=== PATIENT | female | born 1960 | race Caucasian/White ===

== ENCOUNTER 2023-08-29 10:21 | Emergency (ER) | payer OTHER, SELFPAY ==
--- NOTE | ~2023-08-29 | US_ITS ---
EXAMINATION: US venous doppler UE RT DATE: 08/29/2023 13:30 INDICATION: Right upper limb discoloration. TECHNIQUE: Grayscale ultrasound images without and with compression and Doppler ultrasound images of the right upper extremity veins were obtained. COMPARISON: None. FINDINGS: The visualized portions of the right internal jugular vein, subclavian vein, axillary vein, brachial veins, basilic vein, cephalic vein, radial vein, and ulnar vein are patent. IMPRESSION: 1. No deep venous thrombosis. Reviewed, dictated and finalized at location A.
[2023-08-29 10:22] VITALS: BP 137/71; PULSE 97; RESP 19; TEMP 36.9; O2SAT 96
[2023-08-29 11:51] VITALS: BP 121/64; PULSE 92; RESP 16; O2SAT 95
--- NOTE | 2023-08-29 12:16 | ED.GENADULT ---
HPI - General Adult General Chief complaint: Extremity Injury, Upper Stated complaint: arm swelling and bruising Time Seen by Provider: 08/29/23 11:00 History of Present Illness HPI narrative: 63-year-old female present to the emergency department for evaluation of bruising of the right arm. Patient had a fall last week and had extensive bruising of the arm. Patient did have x-rays of the arm. Due to the extensive bruising and persistent swelling patient was sent to the emergency department for evaluation. Patient states she felt like the swelling was improving. Patient denies any numbness or weakness of that arm. Patient is not on any blood thinners. Patient denies any other pain or injury. During the fall patient states she did not strike her head had no loss of consciousness. Related Data Allergies Allergy/AdvReac Type Severity Reaction Status Date / Time No Known Allergies Allergy Unknown Verified 09/08/05 19:18 Review of Systems Review of Systems: All systems reviewed & are unremarkable except as noted in HPI and below Exam Narrative: APPEARANCE: Well appearing, no pain, no distress, well-nourished. HEAD: normocephalic, atraumatic. EYES: PERRLA/EOMI, conjunctivae clear. NECK: Supple. No adenopathy, no masses. RESPIRATORY: Airway patent, respirations nonlabored. Clear to auscultation bilaterally, no rales, rhonchi, wheezing. CARDIOVASCULAR: Regular rate and rhythm without murmurs rubs or gallops. ABDOMINAL: Soft, nontender, nondistended, normal bowel sounds MUSCULOSKELETAL: Ecchymosis of right upper extremity neurologically intact with strong pulses, localized bursitis of the elbow NEURO: Alert. Cranial nerves II through XII intact. Grossly intact SKIN: Warm, dry. Normal Color Course Vital Signs Vital signs: Vital Signs Temperature 98.4 F 08/29/23 10:22 Pulse Rate 97 08/29/23 10:22 Respiratory Rate 19 08/29/23 10:22 Blood Pressure 137/71 08/29/23 10:22 Pulse Oximetry 96 08/29/23 10:22 Oxygen Delivery Room Air 08/29/23 10:22 Temperature 98.4 F 08/29/23 10:22 Pulse Rate 92 08/29/23 11:51 Respiratory Rate 16 08/29/23 11:51 Blood Pressure 121/64 08/29/23 11:51 Pulse Oximetry 95 08/29/23 11:51 Oxygen Delivery Room Air 08/29/23 10:22 Medical Decision Making MDM Narrative Medical decision making narrative: 63-year-old female presented emergency department for evaluation of right arm spine that she feels is improving. Patient is afebrile with no leukocytosis and a stable hemoglobin of 10.4. No acute abnormalities on the patient's CMP. Ultrasound was negative for DVT. Patient is neurovascularly intact and states the pain is improving. Patient denies any paresthesia. Low concern for compartment syndrome. Patient was encouraged of close follow-up with her primary care physician. Patient does have some mild erythema of the elbow that is concerning for bursitis, patient is being started on Keflex for this. Differential Diagnosis Differential Diagnosis: Compartment syndrome, cellulitis, bursitis, DVT Vital Signs Vital Signs: Vital Signs Temperature 98.4 F 08/29/23 10:22 Pulse Rate 97 08/29/23 10:22 Respiratory Rate 19 08/29/23 10:22 Blood Pressure 137/71 08/29/23 10:22 Pulse Oximetry 96 08/29/23 10:22 Oxygen Delivery Room Air 08/29/23 10:22 Temperature 98.4 F 08/29/23 10:22 Pulse Rate 92 08/29/23 11:51 Respiratory Rate 16 08/29/23 11:51 Blood Pressure 121/64 08/29/23 11:51 Pulse Oximetry 95 08/29/23 11:51 Oxygen Delivery Room Air 08/29/23 10:22 Lab Data Lab results reviewed: Yes I reviewed the patient's lab results. 08/29/23 12:37 08/29/23 12:37 Labs: Lab Results 08/29/23 08/29/23 Range/Units 12:37 12:38 WBC 5.4 (4.5-10.0) K/mm3 RBC 3.77 L (4.2-5.4) M/mm3 Hgb 10.4 L (12.0-15.0) g/dL Hct 32.5 L (37.0-47.0) % MCV 86.2 (80-100) fl MCH 27.6 (26-34)
[2023-08-29 12:52] LABS: Basophils Absolute Auto 0.1 K/mm3 (0.0-0.1); Basophils Percent Auto 0.9 % (0.2-1.2); Eosinophils Absolute Auto 0.2 K/mm3 (0-0.3); Eosinophils Percent Auto 3.9 % (0-4.4); Hematocrit 32.5 % (37.0-47.0); Hemoglobin 10.4 g/dL (12.0-15.0); Immature Granulocyte Absolute 0.02 K/mm3 (0.00-0.031); Immature Granulocyte Percent A 0.4 % (0-0.5); Lymphocytes Percent Auto 18.4 % (18.3-44.2); Mean Corpuscular Hemoglobin 27.6 pg (26-34); Mean Corpuscular Volume 86.2 fl (80-100); Mean Platelet Volume 10.2 fl (7.4-10.4); Monocytes Absolute Auto 0.5 K/mm3 (0.1-0.6); Monocytes Percent Auto 9.2 % (2.6-8.5); Neutrophils Absolute Auto 3.7 K/mm3 (1.3-6.7); Neutrophils Percent Auto 67.2 % (45.5-73.1); Platelet Count Result 308 k/mm3 (150-375); Red Blood Count 3.77 M/mm3 (4.2-5.4); Red Cell Distribution Width 13.9 % (11.5-14.5); White Blood Count 5.4 K/mm3 (4.5-10.0)
[2023-08-29 13:13] LABS: Prothrombin Time 13.3 Seconds (11.1-14.7)
[2023-08-29 13:14] LABS: Partial Thromboplastin Time 33.9 Seconds (22.3-36.8)
[2023-08-29 13:26] LABS: Alanine Aminotransferase 19 U/L (6-35); Albumin Level 4.1 g/dL (3.5-5.1); Alkaline Phosphatase 104 U/L (38-126); Anion Gap 2 mmol/L (4-12); Aspartate Amino Transferase 32 U/L (14-36); Bilirubin,Total 0.6 mg/dL (0.2-1.3); Blood Urea Nitrogen 8 mg/dL (7-17); Calcium 8.5 mg/dL (8.4-10.2); Carbon Dioxide 35 mmol/L (22-30); Chloride 101 mmol/L (98-107); Estimated CRCL calculation 89 ml/min; Estimated Glomerular Filt Rate > 60; Glucose 104 mg/dL (65-110); Potassium 4.3 mmol/L (3.4-5.0); Sodium 138 mmol/L (137-145)
== END 2023-08-30 00:51 ==
PROVIDERS: Emergency Provider Emergency Medicine
DX: M71.9 Bursopathy, unspecified (principal); R22.31 Localized swelling, mass and lump, right upper limb
CPT/HCPCS: 36415; 80053; 85025; 85610; 85730; 93971; 99284